=== PATIENT | female | born 1960 | race Caucasian/White ===

== ENCOUNTER 2016-12-17 17:47 | Inpatient (IN) | payer MEDICAID ==
[~2016-12-17] VITALS: Ht 160 cm; Wt 83.8 kg
[2016-12-17] MEDS ORDERED: ASPIRIN 325 MG TAB PO STA (21:02)
[2016-12-17] MEDS ORDERED: NITROGLYCERIN 2% 1 GM OINT PKT TD STA (21:02)
[2016-12-17] MEDS ORDERED: NICARDipine HCL 30 MG CAPSULE PO ONE (21:30)
[2016-12-17 21:32] LABS: BASOPHIL # 0.1 10^3/ul (0.0-0.1); BASOPHILS % 0.6 % (0.0-2.0); EOSINOPHILS % 0.5 % (0.0-7.0); HEMATOCRIT 39.4 % (37.0-47.0); HEMOGLOBIN 11.8 g/dl (12.0-16.0); LYMPHOCYTES % 33.9 % (15.0-51.0); MEAN CORPUSCULAR HEMOGLOBIN 23.2 pg (29.0-33.0); MEAN CORPUSCULAR HGB CONC 29.9 g/dl (32.0-37.0); MEAN CORPUSCULAR VOLUME 77.4 fl (82.0-101.0); MEAN PLATELET VOLUME 10.8 fl (7.4-10.4); MONOCYTE # 0.5 10^3/ul (0.3-0.9); MONOCYTES % 5.9 % (0.0-11.0); NEUTROPHIL # 5.2 10^3/ul (1.6-7.5); NEUTROPHILS % 58.8 % (39.0-77.0); PLATELET COUNT 358 10^3/UL (140-415); RED BLOOD COUNT 5.09 10^6/ul (4.20-5.40); RED CELL DISTRIBUTION WIDTH 17.5 % (11.5-14.5); WHITE BLOOD COUNT 8.8 10^3/ul (4.8-10.8)
[2016-12-17 21:49] LABS: ANION GAP 23 (8-16); BLOOD UREA NITROGEN 12 mg/dl (7-20); CALCIUM 10.2 mg/dl (8.4-10.2); CARBON DIOXIDE 27 mmol/L (21-31); CHLORIDE 103 mmol/L (97-110); CREATININE 0.76 mg/dl (0.44-1.00); GLUCOSE 103 mg/dl (70-220); POTASSIUM 3.9 mmol/L (3.5-5.1); SODIUM 149 mmol/L (135-144)
[2016-12-17 22:03] LABS: TROPONIN-I < 0.012 ng/ml (0.00-0.12)
--- NOTE | 2016-12-17 22:17 | ERA ---
ER Documentation Chief Complaint Date/Time DATE: 12/17/16 TIME: 22:13 Chief Complaint CHEST PAIN SENT BY MD ORELLANA This a 56-year-old female who is sent by her primary care physician for admission for chest pain. The patient states that she has been having hypertension for several years but not being treated for it. The patient states that she has had some substernal chest pressure over the past 2 days off- and-on for radiation to the left shoulder with occasional shortness of breath and not every time. No diaphoresis no weakness no palpitations no syncope. Patient is also complaining of occasional off-and-on headaches. Currently she has a headache. She also states she has no chest pain at this time. She denies any prior workup she has not gone to the doctor in years. She does not know if she has high cholesterol. ROS All systems reviewed and are negative except as per history of present illness. Medications Home Meds No Active Prescriptions or Reported Meds Allergies Allergies: Coded Allergies: No Known Allergy (Unverified , 12/17/16) PMhx/Soc History of Surgery: Yes (TUBAL LIGATION.) Anesthesia Reaction: No Hx Neurological Disorder: No Hx Respiratory Disorders: No Hx Cardiac Disorders: No Hx Psychiatric Problems: No Hx Miscellaneous Medical Probl: No Hx Alcohol Use: No Hx Substance Use: No Hx Tobacco Use: No Smoking Status: Never smoker FmHx Family History: No coronary disease Physical Exam Vitals Vital Signs Date Time Temp Pulse Resp B/P Pulse Ox O2 Delivery O2 Flow Rate FiO2 12/17/16 21:07 Nasal Cannula 2 12/17/16 21:00 98.0 89 18 174/104 100 Room Air 12/17/16 17:53 98.0 117 18 203/103 99 Physical Exam Const: Well-developed, well-nourished Head: Atraumatic, normocephalic Eyes: Normal Conjunctiva, PERRLA, EOMI, normal sclera, no nystagmus ENT: Normal External Ears, Nose and Mouth, moist mucus membranes. Neck: Full range of motion. No meningismus, no lymphadenopathy. Resp: Clear to auscultation bilaterally, no wheezing, rhonchi, rales Cardio: Regular rate and rhythm, no murmurs, S1 S2 present Abd: Soft, non tender x 4, non distended. Normal bowel sounds, no guarding or rebound, no pulsitile abdominal masses or bruits Skin: No petechiae or rashes, no ecchymosis , no maculopapular rash Back: No midline or flank tenderness Ext: No cyanosis, or edema, FROM x 4, normal inspection, neurovascularly intact x 4 Neur: Awake and alert, STR 5/5 x 4, sensation intact x 4, no focal findings, cerebellum intact Psych: Normal Mood and Affect Result Diagram: 12/17/16210912/17/162109 Results 24 hrs Laboratory Tests Test 12/17/16 21:10 White Blood Count 8.810^3/ul Red Blood Count 5.0910^6/ul Hemoglobin 11.8g/dl Hematocrit 39.4% Mean Corpuscular Volume 77.4fl Mean Corpuscular Hemoglobin 23.2pg Mean Corpuscular Hemoglobin Concent 29.9g/dl Red Cell Distribution Width 17.5% Platelet Count 16060^3/UL Mean Platelet Volume 10.8fl Neutrophils % 58.8% Lymphocytes % 33.9% Monocytes % 5.9% Eosinophils % 0.5% Basophils % 0.6% Nucleated Red Blood Cells % 0.0/100WBC Neutrophils # 5.210^3/ul Lymphocytes # 3.010^3/ul Monocytes # 0.510^3/ul Eosinophils # 0.010^3/ul Basophils # 0.110^3/ul Nucleated Red Blood Cells # 0.010^3/ul Sodium Level 149mmol/L Potassium Level 3.9mmol/L Chloride Level 103mmol/L Carbon Dioxide Level 27mmol/L Anion Gap 23 Blood Urea Nitrogen 12mg/dl Creatinine 0.76mg/dl Glucose Level 103mg/dl Calcium Level 10.2mg/dl Troponin I < 0.012ng/ml Current Medications Medications (Trade) Dose Ordered Sig/Blanca Route PRN Reason Start Time Stop Time Status Last Admin Dose Admin Aspirin (Aspirin) 325 mg ONCE STAT PO 12/17/16 21:02 12/17/16 21:04 DC 12/17/16 21:18 Nitroglycerin (Nitroglycerin 2% Oint) 1 inch ONCE STAT TD 12/17/16 21:02 12/17/16 21:04 DC 12/17/16 21:19 Nicardipine HCl (Cardene) 30 mg ONCE ONCE PO 12/17/16 21:30 12/17/16 21:31 DC 12/17/16 21:18 Procedures/MDM EKG: Rate/Rhythm: Sinus tachycardia heart rate 117, right axis deviation QRS, ST, QT: NORMAL [place], QRS, QT] Impression: Abnormal EKG Patient will need to be admitted for chest pain workup and her uncontrolled blood pressure. The patient was a bit tachycardic but is not having any shortness of breath ; never has. My suspicion for PE is extremely low Patient's symptoms are concerning for cardiac cause will require inpatient workup and continuous monitoring. Further w/u for ischemia, arrhythmia, PE or dissection will be deferred to the inpatient team. Accepting Care Team: Current data and ongoing care discussed. Time: Time of admission Primary Provider: [XOXOXO] Consulting: [XOXOXO] Outstanding Data: none Departure Diagnosis: Primary Impression: Chest pain Qualified Code: R07.9 - Chest pain, unspecified type Condition: Stable MARISELA WEINSTEIN DO Dec 17, 2016 22:17
[2016-12-17] MEDS ORDERED: ACETAMINOPHEN 325 MG TAB PO PRN (22:30)
[2016-12-17] MEDS ORDERED: ONDANSETRON 4 MG INJ IV PRN (22:30)
--- NOTE | 2016-12-17 22:53 | RADRPT ---
PROCEDURE: XR Chest. CLINICAL INDICATION: Chest pain. TECHNIQUE: Single frontal view of the chest. COMPARISON: None. FINDINGS: The cardiomediastinal silhouette is within normal limits. The lungs are clear. No signs of pleural f luid or pneumothorax are seen. The osseous structures and soft tissues are unremarkable. IMPRESSION: No evidence for active cardiopulmonary disease. RPTAT: [facility] Physician Sav Date Time Electronically viewed and signed by Cheyanne Zelaya Physician on 12/17/2016 22:53 RS/
[2016-12-17 23:11] VITALS: TEMP 98
[2016-12-18] VITALS (13 sets, daily range): BP systolic 96–141; BP diastolic 59–82; PULSE 71–105; RESP 17–21; Ht 160 cm; Wt 83.8 kg
[2016-12-18] MEDS ORDERED: ONDANSETRON 4 MG INJ IV PRN (00:30)
[2016-12-18] MEDS ORDERED: ACETAMINOPHEN 325 MG TAB PO PRN (00:30)
--- NOTE | 2016-12-18 06:14 | HP ---
Date/Time of Note Date/Time of Note DATE: 12/17/16 TIME: 23:07 Assessment/Plan VTE Prophylaxis VTE Prophylaxis Intervention: heparin Lines/Catheters IV [facility] Type [facility]from [facility] Peripheral IV Urinary Cath still in place: No Assessment/Plan Assessment/Plan 1. Chest pain, rule out ACS - will be placed on aspirin and statin. Given blood pressure is now on the lower side, I will not start her on beta-celine or any other blood pressure medication. -We will obtain a 2D echo and if needed a cardiology consult. 2. Hypertensive urgency -She has been given Cardizem 30 mg by mouth and since then blood pressure actually has been on the lower side. We will monitor closely for now. DVT prophylaxis: Subq heparin HPI/ROS Admit Date/Time Admit Date/Time Dec 17, 2016 at 22:18 Hx of Present Illness This is a 56-year-old female with no significant past medical history who presented to the emergency department for evaluation of chest pain. She has been having left-sided pressure-like chest pain for the past 3 days. Pain is nonradiating with no associated shortness of breath nausea vomiting or diaphoresis. She is accompanied by her who also participated with the history taking. According to the patient, this is her first episode of chest pain. Patient does not take any home medication at home and thus far as she is concerned that she has been healthy. She has been evaluated by her primary care doctor who instructed her to come to the ER. When she presented to the ER, blood pressure was 210/110. EKG with no sign of ischemia. Her first troponin is negative. Chest x-ray was no active cardiopulmonary disease. Patient was given nicardipine 30 mg p.o. 1. Her blood pressure then dropped to around 109/71. Currently she is symptom-free and she is actually feeling comfortable. PMH/Family/Social Social History Smoking Status: Never smoker Exam/Review of Systems Vital Signs Vitals Vital Signs Date Time Temp Pulse Resp B/P Pulse Ox O2 Delivery O2 Flow Rate FiO2 12/18/16 04:30 71 12/18/16 04:22 98.6 17 96/59 96 12/17/16 23:11 Room Air 12/17/16 21:07 2 Exam Constitutional: alert, oriented, well developed Head: atraumatic, normocephalic Eyes: EOMI, PERRL Respiratory: clear to auscultation, normal air movement Cardiovascular: nl pulses, regular rate and rhythm Gastrointestinal: non-tender, soft Extremities: normal pulses Labs Result Diagram: 12/17/16210912/17/162109 Medications Medications Current Medications Ondansetron HCl (Zofran Inj) 4 mg Q6H PRN IV NAUSEA AND/OR VOMITING; Start at 00:30 Acetaminophen (Tylenol Tab) 650 mg Q6H PRN PO PAIN AND OR ELEVATED TEMP; Start 12/18/16 at 00:30 Aspirin (Halfprin) 81 mg DAILY PO ; Start 12/18/16 at 09:00; Status UNV JAY NAQVI MD Dec 18, 2016 06:14
[2016-12-18 07:39] LABS: BASOPHILS % 0.5 % (0.0-2.0); EOSINOPHILS # 0.2 10^3/ul (0.0-0.5); EOSINOPHILS % 2.6 % (0.0-7.0); HEMATOCRIT 33.9 % (37.0-47.0); HEMOGLOBIN 10.7 g/dl (12.0-16.0); LYMPHOCYTES # 2.7 10^3/ul (0.8-2.9); LYMPHOCYTES % 36.1 % (15.0-51.0); MEAN CORPUSCULAR HEMOGLOBIN 24.2 pg (29.0-33.0); MEAN CORPUSCULAR HGB CONC 31.6 g/dl (32.0-37.0); MEAN CORPUSCULAR VOLUME 76.5 fl (82.0-101.0); MEAN PLATELET VOLUME 10.8 fl (7.4-10.4); MONOCYTE # 0.8 10^3/ul (0.3-0.9); MONOCYTES % 10.3 % (0.0-11.0); NEUTROPHIL # 3.8 10^3/ul (1.6-7.5); NEUTROPHILS % 50.1 % (39.0-77.0); PLATELET COUNT 297 10^3/UL (140-415); RED BLOOD COUNT 4.43 10^6/ul (4.20-5.40); RED CELL DISTRIBUTION WIDTH 17.1 % (11.5-14.5); WHITE BLOOD COUNT 7.6 10^3/ul (4.8-10.8)
[2016-12-18 07:55] LABS: ALBUMIN/GLOBULIN RATIO 1.21; BILIRUBIN,INDIRECT 0.3 mg/dl (0-1.1); BILIRUBIN,TOTAL 0.3 mg/dl (0.2-1.3); CALCIUM 9.6 mg/dl (8.4-10.2); CREATININE 0.72 mg/dl (0.44-1.00); MAGNESIUM 2.1 mg/dl (1.7-2.5); PHOSPHORUS 5.2 mg/dl (2.5-4.9); POTASSIUM 3.6 mmol/L (3.5-5.1); TOTAL PROTEIN 7.3 g/dl (6.1-8.1)
[2016-12-18] MEDS: ASPIRIN (EC) 81 MG TAB PO SCH (08:09)
--- NOTE | 2016-12-18 14:03 | PN ---
Date/Time of Note Date/Time of Note DATE: 12/18/16 TIME: 14:00 Assessment/Plan VTE Prophylaxis VTE Prophylaxis Intervention: SCD's Lines/Catheters IV [facility] Type (from [facility] [place] Urinary Cath still in place: No Assessment/Plan Chief Complaint/Hosp Course Assessment and plan 1. Chest pain. Rule out ACS. Continue on statin and aspirin. Trend troponin levels. Awaiting echocardiogram result. 2. Hypertensive urgency. Improved at present. Will monitor trend. Will provide with antihypertensives as needed. 3. Obesity. Weight reduction advised. Disposition and plan: Await final troponin. Follow-up on echocardiogram. Discussed plan of care with Dr. Mckeon Problems: Subjective 24 Hr Interval Summary Free Text/Dictation No reports of chest pain at this time. Exam/Review of Systems Vital Signs Vitals Vital Signs Date Time Temp Pulse Resp B/P Pulse Ox O2 Delivery O2 Flow Rate FiO2 12/18/16 12:29 89 12/18/16 11:05 98.0 19 115/75 98 12/17/16 23:11 Room Air 12/17/16 21:07 2 Exam Constitutional: alert, obese, oriented Psych: nl mood/affect Neck: supple, No jvd Respiratory: clear to auscultation Cardiovascular: nl pulses, regular rate and rhythm Gastrointestinal: soft Musculoskeletal: nl extremities to inspection Neurological: [employer] EXPERIENCE STRATEGIST II-XII intact, nl mental status, nl speech Results Result Diagram: 12/18/16 0653 12/18/16 0653 Results 24 hrs Laboratory Tests Test 12/17/16 21:10 12/18/16 06:53 White Blood Count 8.8 7.6 Red Blood Count 5.09 4.43 Hemoglobin 11.8 L 10.7 L Hematocrit 39.4 33.9 L Mean Corpuscular Volume 77.4 L 76.5 L Mean Corpuscular Hemoglobin 23.2 L 24.2 L Mean Corpuscular Hemoglobin Concent 29.9 L 31.6 L Red Cell Distribution Width 17.5 H 17.1 H Platelet Count 358 297 Mean Platelet Volume 10.8 H 10.8 H Neutrophils % 58.8 50.1 Lymphocytes % 33.9 36.1 Monocytes % 5.9 10.3 Eosinophils % 0.5 2.6 Basophils % 0.6 0.5 Nucleated Red Blood Cells % 0.0 0.0 Neutrophils # 5.2 3.8 Lymphocytes # 3.0 H 2.7 Monocytes # 0.5 0.8 Eosinophils # 0.0 0.2 Basophils # 0.1 0.0 Nucleated Red Blood Cells # 0.0 0.0 Sodium Level 149 H 145 H Potassium Level 3.9 3.6 Chloride Level 103 102 Carbon Dioxide Level 27 27 Anion Gap 23 H 20 H Blood Urea Nitrogen 12 17 Creatinine 0.76 0.72 Glucose Level 103 96 Calcium Level 10.2 9.6 Troponin I < 0.012 < 0.012 Phosphorus Level 5.2 H Magnesium Level 2.1 Total Bilirubin 0.3 Direct Bilirubin 0.00 Indirect Bilirubin 0.3 Aspartate Amino Transf (AST/SGOT) 21 Alanine Aminotransferase (ALT/SGPT) 26 Alkaline Phosphatase 107 Total Protein 7.3 Albumin 4.0 Globulin 3.30 H Albumin/Globulin Ratio 1.21 Medications Medications Current Medications Ondansetron HCl (Zofran Inj) 4 mg Q6H PRN IV NAUSEA AND/OR VOMITING; Start at 00:30 Acetaminophen (Tylenol Tab) 650 mg Q6H PRN PO PAIN AND OR ELEVATED TEMP Last administered on 12/18/16 08:09; Admin Dose 650 MG; Start 12/18/16 at 00:30 Aspirin (Halfprin) 81 mg DAILY PO Last administered on 12/18/16 08:09; Admin Dose 81 MG; Start 12/18/16 at 09:00 THUY WILSON Dec 18, 2016 14:03
[2016-12-18 15:11] LABS: CHOL/HDL RATIO 3.3 RATIO
[2016-12-19] VITALS (8 sets, daily range): BP systolic 115–130; BP diastolic 72–82; PULSE 69–82; RESP 17–19
[2016-12-19] MEDS: ASPIRIN (EC) 81 MG TAB PO SCH (08:15)
[2016-12-19] MEDS ORDERED: ASPI-664 PO (10:54)
[2016-12-19] MEDS ORDERED: FAMO20TA18 PO (10:54)
--- NOTE | 2016-12-19 10:54 | PDOCDIS ---
Discharge Instructions DIAGNOSIS Discharge Diagnosis 1. Chest pain. Atypical. 2. Obesity. CONDITION Patient Condition: Stable HOME CARE INSTRUCTIONS: Diet Instructions: Reduced CalorieSpecial Diet: Low-fat low-cholesterol FOLLOW UP/APPOINTMENTS Follow-up Plan 1. Follow-up with your primary care provider within a week THUY WILSON Dec 19, 2016 10:54
--- NOTE | 2016-12-19 14:20 | DS ---
Date/Time of Note Date/Time of Note DATE: 12/19/16 TIME: 14:17 Discharge Summary Admission/Discharge Info Admit Date/Time Dec 17, 2016 at 22:18 Discharge Date/Time Discharge Diagnosis 1. Chest pain. Atypical. 2. Obesity. Patient Condition: Stable Hospital Course This is a 56-year-old female with no reported past medical history who came to [facility] due to reports of chest pain. She did report she had been having chest pain on the left side of her chest and initially stated was pressure-like in nature for 3 days duration. She reported it was nonradiating. She subsequently went to [facility] for further evaluation. We did trend her serial troponins which were all essentially negative. Patient also had no real risk factors with no hypertension no diabetes or no dyslipidemia. She denied any familial history of heart disease also. She denied any chest pain on exertion. She did state after review that she primarily had chest pain when she was lying down and when she would turn to her left side. The pain was musculoskeletal in nature likely costochondritis. Patient was ruled out for ACS. She was otherwise optimized medically. She was initially seen with elevated blood pressure as high as 203/ 103. She did respond well to antihypertensive medications and she had no real problem with hypertension and thereafter. During the course of stay she did improve. She was instructed to follow-up with primary care provider within a week. On the day of discharge patient was in stable condition Discussed plan of care with Dr. Mckeon Crandall Meds Active Scripts Famotidine* (Famotidine*) 20 Mg Tablet, 20 MG PO DAILY, #30 TAB Prov:THUY WILSON 12/19/16 Aspirin* (Aspirin* EC) 81 Mg Tablet.dr 81 MG PO DAILY for 30 Days Prov:THUY WILSON 12/19/16 Follow-up Plan HOME CARE INSTRUCTIONS: Diet Instructions: Reduced CalorieSpecial Diet: Low-fat low-cholesterol FOLLOW UP/APPOINTMENTS Follow-up Plan 1. Follow-up with your primary care provider within a week Primary Care Provider Care Physician No Primary Time spent on discharge: > 30 minutes THUY WILSON Dec 19, 2016 14:20
--- NOTE | 2016-12-20 16:56 | RADRPT ---
Echocardiogram Report Patient Name: CATHY IYER Gender: Female Date: 1960 Study Date: 18-Dec-2016 Business Services Intern: LENIN Location: I Ref. Physician: JAY NAQVI Quality: Adequate Procedures: Transthoracic echocardiogram with complete 2D, M-Mode, and doppler examination. Indications: Chest Pain. 2D/M Mode Doppler Measurement Value Normal Ranges Measurement Value Normal Ranges AoR Diam MM 3.4 cm AV Peak Los 1.3 m/sec ACS MM 2.0 cm AV Peak PG 7.2 mmHg LVIDd 2D 3.6 3.5 - 5.6 cm LVOT Peak Los 0.8 m/sec LVIDs 2D 2.4 2.1 - 4.1 cm LVOT Peak PG 2.7 mmHg LVPWd 2D 1.2 0.6 - 1.1 cm MV E Peak Los 0.6 m/sec IVSd 2D 1.2 0.6 - 1.1 cm MV A Peak Los 0.8 m/sec EDV 2D 54.7 cm3 MV E/A 0.7 ESV 2D 13.3 cm3 MV Decel Time 148 msec LA Dimen 2D 3.1 2.3 - 4.0 cm MV Decel [place] 4 MV E/A 0.7 Findings Left Ventricle: Normal left ventricular systolic function. Normal left ventricular cavity size. Mild concentric left ventricular hypertrophy. Ejection fraction is visually estimated at 60 %. Tissue Doppler/Mitral Doppler indices are consistent with impaired relaxation (Stage I diastolic dysfunction). E/E`=6. Right Ventricle: Normal right ventricular size. Normal right ventricular systolic function. Left Atrium: The left atrium is normal in size. Right Atrium: The right atrium is normal in size. Atrial Septum: Normal atrial septum. Mitral Valve: Normal appearance of the mitral valve. Trace mitral regurgitation. Aortic Valve: No significant aortic stenosis or insufficiency. Normal trileaflet aortic valve structure. Tricuspid Valve: Normal appearance of the tricuspid valve. There is trace tricuspid regurgitation. Pulmonic Valve: Pulmonic valve not well visualized. Pericardium: Normal pericardium with no significant pericardial effusion. Aorta: Normal aortic root. IVC: Normal size and normal respiratory collapse consistent with normal right atrial pressure. Pulmonary Artery: Not well visualized. Conclusions 1.Normal left ventricular systolic function. Normal left ventricular cavity size. Mild concentric left ventricular hypertrophy. Ejection fraction is visually estimated at 60 %. Tissue Doppler/Mitral Doppler indices are consistent with impaired relaxation (Stage I diastolic dysfunction). E/E`=6. 2.Normal appearance of the mitral valve. Trace mitral regurgitation. 3.Normal appearance of the tricuspid valve. There is trace tricuspid regurgitation. Electronically Signed By: Elijah Grant 20-Dec-2016 16:56:34 -0700 Patient Name: CATHY IYER Study Date: 18-Dec-2016 [id number]
== END 2016-12-19 15:13 | disposition home or self-care (01) | DRG 313 ==
LOC: E/R 17:47 → TEL 22:18
PROVIDERS: ADMIT Internal Medicine; ATTEND Internal Medicine
DX: R07.89 Other chest pain (principal); E66.9 Obesity, unspecified; I16.0 Hypertensive urgency; Z68.32 Body mass index [BMI] 32.0-32.9, adult
CPT/HCPCS: 36415; 71010; 80048; 80053; 80061; 83735; 84100; 84484; 85025; 93005; 93306